=== PATIENT | male | born 2000 | race Hispanic/Latino ===

== ENCOUNTER 2022-09-24 13:12 | Emergency (ER) | payer MEDICAID, OTHER ==
[~2022-09-24] VITALS: Ht 175.3 cm; Wt 90.7 kg
[2022-09-24] MEDS ORDERED: LIDOCAINE HCL 1% 20 ML VIAL ONE (13:47)
[2022-09-24 13:57] VITALS: BP 128/71
[2022-09-24] MEDS ORDERED: DOCU-133 PO (14:11)
[2022-09-24] MEDS ORDERED: HYDR25SU38 RC (14:11)
[2022-09-24] MEDS ORDERED: IBUP-2070 PO (14:11)
[2022-09-24] MEDS ORDERED: DEXAMETHASONE SOD PHOSPHATE 4 MG/ML 1ML VIAL IM SCH (14:30)
[2022-09-24] MEDS ORDERED: LIDOCAINE HCL 1% 20 ML VIAL INJ SCH (14:30)
== END 2022-09-24 14:36 | disposition home or self-care (01) ==
LOC: EDH 13:12
DX: K64.5 Perianal venous thrombosis (principal); Z98.890 Other specified postprocedural states
CPT/HCPCS: 99283; 96372; J1100